=== PATIENT | male | born 1950 | race Caucasian/White ===

== ENCOUNTER 2017-12-12 19:05 | Emergency (ER) | payer MEDICARE, BC, SELFPAY ==
[2017-12-12 19:06] VITALS: BP 153/93; PULSE 61; RESP 16; TEMP 36.7; O2SAT 97; BMI 23.6
[2017-12-12 19:53] LABS: Absolute Lymphocyte Count 0.95 X10^3/ul (0.83-4.51); Absolute Neutrophil Count 3.7 X10^3/uL (2.0-7.7); Basophil# 0.01 X10^3/uL; Basophil% 0.2 % (0-1); Eosinophil# 0.09 X10^3/uL; Eosinophils% 1.7 % (0-5); Hematocrit 45.5 % (40-54); Hemoglobin 15.3 g/dl (13.0-16.5); Lymphocyte # 0.95 X10^3/ul (4.0); Lymphocyte % 18.4 % (19-41); Mean Corp Hgb Conc 33.6 g/gl (32-36); Mean Corpuscular Volume 92.1 fL (80-94); Mean Platelet Vol. 11.4 fl (6.2-12.0); Monocyte# 0.45 X10^3/uL; Monocyte% 8.7 % (0-10); Neutrophil # 3.65 X10^3/uL (2.7-7.7); Neutrophil % 70.8 % (47-70); POSITIVE COUNT NO; POSITIVE DIFFERENTIAL NO; POSITIVE MORPHOLOGY NO; Platelet Count 139 K/mm3 (150-450); RBC Distribution Width CV 12.9 % (11.6-14.6); RBC Distribution Width SD 43.8 fl (35.1-43.9); Red Blood Count 4.94 M/mm3 (4.6-6.2); White Blood Count 5.2 K/mm3 (4.4-11.0)
[2017-12-12 19:54] LABS: Erythrocyte Sedimentation Rate 4 mm/hr (0-20)
[2017-12-12 20:01] LABS: Anion Gap 10 (5-15); BUN 23 mg/dL (7-18); BUN/Creat Ratio 18.5 RATIO (10-20); Calcium,Total 8.9 mg/dL (8.5-10.1); Chloride 105 mmol/L (98-107); Creatinine, Serum 1.24 mg/dL (0.70-1.30); EST Glomerular Filtration Rate 62 mL/min (>60); Est Glom Filt Rate - Afr Amer 75 mL/min (>60); Estimated Creatinine Clearance 61.32 ml/min; Glucose 160 mg/dL (74-106); Potassium 4.1 mmol/L (3.5-5.1); Sodium Level 141 mmol/L (136-145)
--- NOTE | 2017-12-12 20:17 | ED.VISSUMM ---
- ER Visit Summary Date of Service: 12/12/17 Chief Complaint: Dizziness History of Present Illness: The patient is a 67 M who has had problems with dizziness for approximately 2 years. He has been seen by his primary care physician, twice in the emergency room last year, 2017, and ENT. Even though his [place]-Hallpike maneuver was negative he had the Tiffanie test performed and underwent vestibular rehabilitation. He does not believe her is any benefit. He does not describe it as spinning. He denies any trouble with speech or swallowing. He denies any paresthesia, anesthesia moderates. He denies any trouble with his gait. He had an MRI 6 months ago because he complained of diplopia with these intermittent episodes over the last 2 years. The MRI was negative as well. Patient presents today because he described a vertiginous symptom that lasted 15-30 seconds. He also stated he got sweaty and does not feel right. He says her something wrong in my head. He is made these same statements during his prior visits. He had an episode where he felt flushed and warm. He had no nystagmus. Physical Examination: Vital signs are marked for an elevated blood pressure 153/93. His vitals otherwise unremarkable. Head is atraumatic normocephalic. Pupils are equal round reactive. Extraocular muscles are intact. TMs are pearly white with landmarks noted. Nares patent with no drainage. Posterior pharynx without erythema or exudate. Uvula is midline. There is no dysphonia or dysphasia. Trachea is midline. There is no stridor with auscultation of the neck. There is no papilledema. There is no carotid bruit noted. Heart is regular without murmur, gallop or rub. S1 and S2 are normal. Lungs are clear to auscultation with good movement of air bilaterally. Abdomen soft nontender. Patient is alert and oriented ?3. Motor is 5 over 5. Sensory is intact. DTRs are symmetric with no clonus or Babinski sign. Cranial 2 through 12 are intact. Cerebellar testing is normal. Gait was observed and there is no ataxia or truncal instability. Since he does not have any nystagmus with lateral gaze [place]-Hallpike maneuver was performed and there is no nystagmus. Hent test was done and there was no abnormality elicited or symptoms. Test Results: CBC and ESR unremarkable. BMP is remarkable for an elevated blood sugar 160 which is not significant. Emergency Department Course and Treatment: The patient complained of headache and spinning the [place]-Hallpike maneuver and hence exam was performed. Because of his age and complaint of headache and ESR was obtained. Electrodes were obtained to determine if this may be the cause of his unusual symptoms. Treatment Plan: His workup is negative and his neuro exam is normal and he has had an MRI in the last 6 months which was normal there are no further tests that are needed to the emergency department. Disposition: Discharged to home with spouse and keep appointment with neurologist scheduled for Wednesday Impression: Headache with reported vertigo unknown etiology This note was generated with [employer] dictation software. It may contain incorrect words, spelling, and punctuation that were not noted in review of the chart prior to signing ED Disposition - Plan for ED Patient: Disposition: Home or Assisted Living Chief Complaint: Dizziness Instructions: ED Dizziness [facility] Referrals: Jenny Milner MD [Primary Care Provider] - Additional Instructions: Appointment with neurologist that is scheduled for this coming December 14.
--- NOTE | 2017-12-12 20:22 | ED.DCSUM_ITS ---
- ER Visit Summary Date of Service: 12/12/17 Chief Complaint: Dizziness History of Present Illness: The patient is a 67 M who has had problems with dizziness for approximately 2 years. He has been seen by his primary care physician, twice in the emergency room last year, 2017, and ENT. Even though his [place]-Hallpike maneuver was negative he had the Tiffanie test performed and underwent vestibular rehabilitation. He does not believe her is any benefit. He does not describe it as spinning. He denies any trouble with speech or swallowing. He denies any paresthesia, anesthesia moderates. He denies any trouble with his gait. He had an MRI 6 months ago because he complained of diplopia with these intermittent episodes over the last 2 years. The MRI was negative as well. Patient presents today because he described a vertiginous symptom that lasted 15 -30 seconds. He also stated he got sweaty and does not feel right. He says her something wrong in my head. He is made these same statements during his prior visits. He had an episode where he felt flushed and warm. He had no nystagmus. Physical Examination: Vital signs are marked for an elevated blood pressure 153/ 93. His vitals otherwise unremarkable. Head is atraumatic normocephalic. Pupils are equal round reactive. Extraocular muscles are intact. TMs are pearly white with landmarks noted. Nares patent with no drainage. Posterior pharynx without erythema or exudate. Uvula is midline. There is no dysphonia or dysphasia. Trachea is midline. There is no stridor with auscultation of the neck. There is no papilledema. There is no carotid bruit noted. Heart is regular without murmur, gallop or rub. S1 and S2 are normal. Lungs are clear to auscultation with good movement of air bilaterally. Abdomen soft nontender. Patient is alert and oriented ?3. Motor is 5 over 5. Sensory is intact. DTRs are symmetric with no clonus or Babinski sign. Cranial 2 through 12 are intact. Cerebellar testing is normal. Gait was observed and there is no ataxia or truncal instability. Since he does not have any nystagmus with lateral gaze [place]-Hallpike maneuver was performed and there is no nystagmus. Hent test was done and there was no abnormality elicited or symptoms. Test Results: CBC and ESR unremarkable. BMP is remarkable for an elevated blood sugar 160 which is not significant. Emergency Department Course and Treatment: The patient complained of headache and spinning the [place]-Hallpike maneuver and hence exam was performed. Because of his age and complaint of headache and ESR was obtained. Electrodes were obtained to determine if this may be the cause of his unusual symptoms. Treatment Plan: His workup is negative and his neuro exam is normal and he has had an MRI in the last 6 months which was normal there are no further tests that are needed to the emergency department. Disposition: Discharged to home with spouse and keep appointment with neurologist scheduled for Wednesday Impression: Headache with reported vertigo unknown etiology This note was generated with [employer] dictation software. It may contain incorrect words, spelling, and punctuation that were not noted in review of the chart prior to signing ED Disposition - Plan for ED Patient: Disposition: Home or Assisted Living Chief Complaint: Dizziness Instructions: ED Dizziness [facility] Referrals: Jenny Milner MD [Primary Care Provider] - Additional Instructions: Appointment with neurologist that is scheduled for this coming December 14.
[2017-12-12 20:36] VITALS: BP 141/80; PULSE 55; RESP 12; O2SAT 95
== END 2017-12-12 20:54 | disposition home or self-care (01) ==
PROVIDERS: Emergency Provider Emergency Medicine; Family Provider Internal Medicine; PCP Internal Medicine
DX: R51 Headache (principal); R42 Dizziness and giddiness; H53.8 Other visual disturbances; E11.9 Type 2 diabetes mellitus without complications; E78.00 Pure hypercholesterolemia, unspecified; Z79.899 Other long term (current) drug therapy
CPT/HCPCS: 80048; 85025; 85652; 99284; A4216

== ENCOUNTER → 2022-08-17 | Outpatient (CLI) | payer MEDICARE, BC, SELFPAY ==
[2022-08-17 15:58] LABS: PSA,Total - Annual Screen 1.04 ng/mL (0.00-4.00)
== END | disposition home or self-care (01) ==
PROVIDERS: PCP Internal Medicine; Referring Provider Urology; Visit Provider Urology
DX: Z12.5 Encounter for screening for malignant neoplasm of prostate (principal)
CPT/HCPCS: 36415; 84153; G0103